=== PATIENT | male | born 1955 | race Caucasian/White ===

== ENCOUNTER 2016-12-21 15:18 | Emergency (ER) | payer BC, OTHER ==
[2016-12-21 15:28] VITALS: BP 128/77
--- NOTE | 2016-12-21 16:25 | RAD ---
INDICATION: Right shoulder pain COMPARISON: None TECHNIQUE: Routine frontal and Y views were obtained. FINDINGS: There is moderate AC joint osteoarthritis. There is minor glenohumeral osteophytes are change. There are mild irregularities about the greater tuberosity. There are subtle findings of calcific tendinitis. IMPRESSION: NO ACUTE BONY FINDINGS. OSTEOARTHRITIS. EARLY CALCIFIC TENDINITIS.
--- NOTE | 2016-12-21 17:49 | UC ---
Lorri Bravo Rebecca, scribed for Julisa Agrawal DO on 12/21/16 at 1558 . Upper Extremity HPI - HPI Summary HPI Summary: Pt is a 61 y/o M who presents to [facility] c/o R shoulder pain. Pain began at about 1100 today after sustaining trauma. Pt was moving hay out of the bed of the truck when he went to step down, missing the step and falling out of the truck onto the latanya of hay. Pt remembers the entire fall. Negative LOC. Pain is discrete to the R shoulder, without radiation, and is only present when moving the arm, not at rest. When present, pain is severe, ranked 8/10. Sx aggravated by lifting, alleviated by nothing, unchanged by a hot bath. Additionally notes nausea immediately after the fall d/t pain (a common pain response for pt)which has resolved. Denies memory loss, fever, chills, diaphoresis, CP, SOB, abdominal pain, V. PMHx R rotator cuff injury about 20 eyars ago and current sx are similar to that episode. - History of Current Complaint Chief Complaint: UCUpperExtremity Stated Complaint: SHOULDER INJURY Time Seen by Provider: 12/21/16 15:55 Hx Obtained From: Patient Onset/Duration: Lasting Hours, Still Present Severity Currently: Severe Pain Intensity: 8 - When moving the arm Pain Scale Used: 0-10 Numeric Location Of Pain: Is Discrete @ - R shoulder Aggravating Factor(s): Lifting Alleviating Factor(s): Nothing Associated Signs And Symptoms: Positive: Negative Related History: Similar Episode/Dx As - R rotator cuff injury 20 years ago - Allergies/Home Medications Allergies/Adverse Reactions: Allergies Allergy/AdvReac Type Severity Reaction Status Date / Time No Known Allergies Allergy Verified 12/21/16 15:28 Home Medications: Home Medications Insulin ? Name 1 dose IM BID 12/21/16 [History Confirmed 12/21/16] PMH/Surg Hx/FS Hx/Imm Hx - Additional Past Medical History Additional PMH: POSITIVE: R rotator cuff problems Endocrine History: Diabetes Other Respiratory History: neg copd GI/ History: Other Other GI/ History: Hernia - surgically repaired - Surgical History Surgical History: Yes Surgery Procedure, Year, and Place: Hernia - Family History Known Family History: Positive: Diabetes Negative: Cardiac Disease, Hypertension - Social History Lives: With Family Alcohol Use: None Substance Use Type: None Smoking Status (MU): Light Every Day Tobacco Smoker Cessation Counseling: Patient Advised to Stop Review of Systems Constitutional: Negative Skin: Negative Eyes: Negative ENT: Negative Respiratory: Negative Cardiovascular: Negative Gastrointestinal: Nausea - resolved Genitourinary: Negative Motor: Negative Neurovascular: Negative Musculoskeletal: Other: - R shoulder pain Neurological: Negative Psychological: Negative All Other Systems Reviewed And Are Negative: Yes - Comments Additional Review of Systems Comments: NEGATIVE: LOC, memory loss, fever, chills, diaphoresis, CP, SOB, abdominal pain and V Physical Exam Triage Information Reviewed: Yes Appearance: Well-Appearing, No Pain Distress, Obese Vital Signs: Initial Vital Signs Temp 96.4 F 12/21/16 15:24 Pulse 79 12/21/16 15:24 Resp 18 12/21/16 15:24 BP 128/77 12/21/16 15:24 Pulse Ox 98 12/21/16 15:24 Vital Signs Reviewed: Yes Eyes: Positive: Conjunctiva Clear. Negative: Discharge ENT: Positive: Normal ENT inspection. Negative: Muffled/hoarse voice Neck exam: Normal Neck: Positive: Supple Respiratory: Positive: Lungs clear, Normal breath sounds, No respiratory distress, No accessory muscle use Cardiovascular: Positive: RRR, No Murmur Musculoskeletal: Positive: Other: - Palpation reveals mild tenderness over the AC joint as well as the supraspinatus, subscapularis tendons. ROM is limited in flexion and abduction to about 6% in both. Passive ROM is intact with flexion and about 90% of abduction, however further testing of the ROM of abduction was deferred as it was causing the pt significant pain. Abrasion over the right elbow and R knee. Distal neurovascular inspection is within normal limits. Neurological: Positive: Alert, Muscle Tone Normal Psychological Exam: Normal Psychological: Positive: Age Appropriate Behavior Skin Exam: Normal Skin: Positive: Other - Warm, Dry, Normal color. Minimal abraisions on rt elbow and knee. Diagnostics - Radiology Shoulder XR Xray Interpretation: No Acute Changes - NO ACUTE BONY FINDINGS. OSTEOARTHRITIS. EARLY CALCIFIC TENDINITIS. Radiology Interpretation Completed By: Radiologist Upper Extremity Course/Dx - Course Course Of Treatment: Pt is a 61 y/o M who presents to [facility] c/o R shoulder pain. Pain began at about 1100 today after falling out of the bed of the truck when he went to step down, missing the step and falling out, onto latanya of hay. Negative LOC. Pain is discrete to the R shoulder, without radiation, and is only present when moving the arm, not at rest. When present, pain is severe, ranked 8/10. Sx aggravated by lifting, unchanged by a hot bath. Additionally notes nausea immediately after the fall which has resolved. Denies memory loss, fever, chills, diaphoresis, CP, SOB, abdominal pain, V. PMHx R rotator cuff problems about 20 years ago. Shoulder XR reveals no acute findings. Pt will be D /C to home with Dx of shoulder sprain with Rx for Naprosyn with a follow up with his PCP. He understands and agrees. Your blood pressure was elevated at this visit. That does not mean you have hypertension, it is probably due to your current condition. Please follow up with your primary care provider. - Differential Dx/Diagnosis Differential Diagnosis/HQI/PQRI: Fracture (Closed), Strain, Sprain Provider Diagnoses: [place]ler sprain. Rotator cuff injury. Elevated blood pressure without diagnosis of hypertension. Discharge - Discharge Plan Condition: Stable Disposition: HOME Prescriptions: Naproxen TAB* [Naprosyn 250 mg TAB*] 500 mg PO BID #14 tab Patient Education Materials: Rotator Cuff Injury (ED), Shoulder Sprain (ED) Referrals: Harman Pal MD [Primary Care Provider] - If Needed Ada Cooper MD [Medical Doctor] - (FOLLOW UP WITHIN 1 WEEK.) Additional Instructions: Your blood pressure was elevated at this visit. That does not mean you have hypertension, it is probably due to your current condition. Please follow up with your primary care provider The documentation as recorded by the Lorri lara Rebecca accurately reflects the service I personally performed and the decisions made by me, Julisa Agrawal DO.
== END 2016-12-21 17:07 | disposition home or self-care (01) ==
LOC: UCEAST 15:18
DX: S43.401A Unspecified sprain of right shoulder joint, initial encounter (principal); W17.89XA Other fall from one level to another, initial encounter; Y92.9 Unspecified place or not applicable
CPT/HCPCS: 99202; G0463

== ENCOUNTER 2019-04-08 10:22 | Inpatient (IN) | payer BC ==
--- NOTE | 2019-04-08 10:30 | ED ---
HPI Cardiac - HPI Summary HPI Summary: Patient is a 63 y/o M presenting to the ED via EMS for a chief complaint of a cardiac problem. Patient states he was having a cardiac stress test on 04/08/19 and his stress test showed ischemic changes so he was sent to [facility]. He denies chest pain, chest pressure, or shortness of breath during the cardiac stress test. Patient does admit occasional shortness of breath, none at the present time, bilateral foot pain, and right foot and ankle edema. He denies abdominal pain or calf pain. Patient was placed on diuretics for his right foot and ankle edema. The bilateral foot pain is attributed to his history of DM. Any aggravating or alleviating factors is denied. PMHx is significant for DM, but a history of COPD or blood clots is denied, ruled out by sonogram. FMHx is significant for cardiac disease in his parents and NM in his brother. Patient admits tobacco use, but denies alcohol use. - History of Current Complaint Stated Complaint: CARDIAC ISSUES PER EMS Hx Obtained From: Patient Onset/Duration: Atraumatic, Still Present Timing: Constant Initial Severity: Moderate Current Severity: Moderate Pain Scale Used: 0-10 Numeric Chest Pain Radiates: No Aggravating Factor(s): Nothing Alleviating Factor(s): Nothing Associated Signs and Symptoms: Positive: Shortness of Breath - None at the present time, Edema - Right foot and ankle, Other: - Positive bilateral foot pain. Negative: Chest Pain, Abdominal Pain, Calf Pain/Swelling Related History: Obesity - Allergy/Home Medications Allergies/Adverse Reactions: Allergies Allergy/AdvReac Type Severity Reaction Status Date / Time No Known Allergies Allergy Verified 04/08/19 10:36 Home Medications: Home Medications Atorvastatin* [Lipitor*] 20 mg PO DAILY 04/08/19 [History Confirmed 04/08/19] Clotrimazole ELVI* [Mycelex ELVI*] 10 mg PO .5X/DAY 04/08/19 [History Confirmed 04/08/19] Dapagliflozin Propanediol [Farxiga] 5 mg PO DAILY 04/08/19 [History Confirmed ] Fluticasone NASAL SPRAY 50MCG* [Flonase NASAL SPRAY 50MCG*] 2 spray BOTH NARES DAILY 04/08/19 [History Confirmed 04/08/19] Insulin Regular 500 Unit/ml [Humulin R U-500 (Concentr] 100 unit SUBCUT TID [History Confirmed 04/08/19] Lansoprazole CAP (NF) [Prevacid CAP (NF)] 30 mg PO DAILY 04/08/19 [History Confirmed 04/08/19] Torsemide TAB* [Demadex*] 40 mg PO DAILY 04/08/19 [History Confirmed 04/08/19] PMH/Surg Hx/FS Hx/Imm Hx Previously Healthy: Yes Endocrine/Hematology History: Reports: Hx Diabetes Cardiovascular History: Reports: Hx Hypertension Denies: Hx Pacemaker/ICD History: Denies: Hx Renal Disease Sensory History: Denies: Hx Legally Blind, Hx Deafness, Hx Hearing Aid Opthamlomology History: Denies: Hx Legally Blind EENT History: Denies: Hx Deafness, Hx Hearing Aid Psychiatric History: Denies: Hx Panic Disorder - Surgical History Surgical History: Yes Surgery Procedure, Year, and Place: Hernia Infectious Disease History: No - Family History Known Family History: Positive: Cardiac Disease, Diabetes, Other - NM Negative: Hypertension - Social History Occupation: Retired Lives: With Family Alcohol Use: None Hx Substance Use: No Substance Use Type: Reports: None Hx Tobacco Use: Yes Smoking Status (MU): Light Every Day Tobacco Smoker Review of Systems Negative: Chest Pain, Other - Negative chest pressure Positive: Shortness Of Breath - Not at the present time Negative: Abdominal Pain Positive: Myalgia - Positive bilateral foot pain; negative calf pain, Edema - Right foot and ankle All Other Systems Reviewed And Are Negative: Yes Physical Exam - Summary Physical Exam Summary: Constitutional: Well-developed, Overweight, Alert. No acute distress. Skin: Warm, Dry HENT: Normocephalic; Atraumatic Eyes: Conjunctiva normal Neck: Musculoskeletal ROM normal neck. (-) JVD, (-) Stridor, (-) Tracheal deviation Cardio: Rhythm regular, rate normal, Heart sounds normal; Intact distal pulses; The pedal pulses are 2+ and symmetric. Radial pulses are 2+ and symmetric. (-) Murmur Pulmonary/Chest wall: Effort normal. (-) Respiratory distress, (-) Wheezes, (-) Rales Abd: Soft, (-) tenderness, (-) Distension, (-) Guarding, (-) Rebound Musculoskeletal: (-) Edema Lymph: (-) Cervical adenopathy Neuro: Alert, Oriented x3 Psych: Mood and affect Normal Triage Information Reviewed: Yes Vital Signs Reviewed: Yes Procedures - Sedation Patient Received Moderate/Deep Sedation with Procedure: No Diagnostics - Laboratory Result Diagrams: 04/08/19 10:49 04/08/19 10:50 Lab Statement: Any lab studies that have been ordered have been reviewed, and results considered in the medical decision making process. - Radiology Chest X-ray Radiology Interpretation Completed By: Radiologist Summary of Radiographic Findings: Chest X-ray IMPRESSION: NO ACTIVE CARDIOPULMONARY DISEASE. Reviewed by Dr. Moscoso. - EKG 10:42 Cardiac Rate: NL - 84 BPM EKG Rhythm: Sinus Rhythm ST Segment: Normal Ectopy: None Summary of EKG Findings: EKG at 10:42 shows normal sinus rhythm with 84 bpm, inferolateral ischemic changes noted. Dr. Moscoso has reviewed and interpreted this EKG. Disposition - Course Course Of Treatment: Patient is a 63 y/o M presenting to the ED via EMS for a chief complaint of a cardiac problem. Patient states he was having a cardiac stress test on 04/08/19 and his stress test showed ischemic changes so he was sent to [facility]. He denies chest pain, chest pressure, or shortness of breath during the cardiac stress test. Patient does admit occasional shortness of breath, none at the present time, bilateral foot pain, and right foot and ankle edema. He denies abdominal pain or calf pain. Patient was placed on diuretics for his right foot and ankle edema. The bilateral foot pain is attributed to his history of DM. Any aggravating or alleviating factors is denied. PMHx is significant for DM, but a history of COPD or blood clots is denied, ruled out by sonogram. FMHx is significant for cardiac disease in his parents and NM in his brother. Patient admits tobacco use, but denies alcohol use. On exam, patient is overweight and in no acute distress. In the ED course, patient was given IV fluids. EKG at 10:42 shows normal sinus rhythm with 84 bpm, inferolateral ischemic changes noted. Chest X-ray IMPRESSION: NO ACTIVE CARDIOPULMONARY DISEASE. At 10:57, I discussed with Dr. Wero Clark who will evaluate the patient in the ED and likely take the patient to the yard laborer. At 11:33, Dr. Clark recommends admission. At 12:22, Dr. Clark assessed the patient and states that the patient will be taken to the yard laborer. At 12:30 , Dr. Heide Lazo discussed with the cilnical scientist for ICU admission following yard laborer. Patient will be admitted to [facility] with a diagnosis of ischemic changes during a cardiac stress test. - Diagnoses Provider Diagnoses: Cardiac ischemia, Abnormal cardiovascular stress test - Physician Notifications Discussed Care Of Patient With: Wero Clark - At 10:57, I discussed with Dr. Wero Clark who will evaluate the patient in the ED and likely take the patient to the yard laborer. At 11:33, Dr. Clark recommends admission. At 12:22, Dr. Clark assessed the patient and states that the patient will be taken to the yard laborer. At 12:30, Dr. Heide Lazo discussed with the cilnical scientist for ICU admission following yard laborer. Time Discussed With Above Provider: 10:57 Instructed by Provider To: MD Will See In ED Discharge ED - Sign-Out/Discharge Documenting (check all that apply): Patient Departure - Admit - Discharge Plan Condition: Stable Disposition: ADMITTED TO [facility] - Billing Disposition and Condition Condition: STABLE Disposition: Admitted to [facility] - Attestation Statements Document Initiated by Jsoefina: Yes Documenting Scribe: Lolis Pelaez Provider For Whom Josefina is Documenting (Include Credential): Warren Moscoso DO Scribe Attestation: Lolis Bravo scribed for Warren Moscoso DO on 04/08/19 at 1417. Scribe Documentation Reviewed: Yes Provider Attestation: The documentation as recorded by the lisetteibLolis spence accurately reflects the service I personally performed and the decisions made by , Warren Moscoso DO Status of Scribjordy Document: Viewed
[2019-04-08] MEDS ORDERED: NS 0.9% 1000 ML** 1,000 ML IV ONE (10:36)
--- OUTSIDE RECORDS SUMMARY | 2019-04-08 10:55 | XMS REPORT | Continuity of Care Document ---
:1955 External Reference #:[id number] Author Name Denzel Mayfield MD (transmitted by agent of provider Joanna Curtis) Address [address] [place] [address] Care Team Providers Name Role Phone Harman Pal MD - Internal Care Team Information Damper Fitter Medicine Problems Description No Information Available Social History Type Date Description Comments Sex Unknown ETOH Use Denies alcohol use Tobacco Use Start: Unknown Patient is a former quit Feb 2017, End: Unknown smoker Recreational Drug Use Denies Drug Use Tobacco Use Start: Unknown Patient is a current recent recurrence of smoker, smokes some smoking days Smoking Status Reviewed: 03/03/19 Patient is a current recent recurrence of smoker, smokes some smoking days Exercise Type/Frequency Does not exercise Allergies, Adverse Reactions, Alerts Active Allergies Reaction Severity Comments Date Jardiance tongue swelling 12/02/2018 Inactive Allergies NKDA 04/21/2018 Medications Active Medications SIG Qnty Indications Ordering Date Provider Steglatro take 1 tablet 30tabs Denzel Mayfield MD 03/03/2019 15mg Tablets once daily in the morning Freestyle Ashley 14 place one sensor 1units E11.65 Denzel Mayfield MD 2018 Day/Sensor/Flash every 14 days Monitoring System Misc Humulin R U-500 100 units in the 18ml E11.65 Denzel Mayfield MD 07/02/2018 Kwikpen morning, 100 at 500Unit/ML midday units and Solution Pen-Inject 100 units in the evening or as directed, mdd 300 units/day Freestyle Ashley 14 use at least 4 1units E11.65 Denzel Mayfield MD 05/07/2018 Day/[place]/Flash times daily with Monitoring System sensor Device Freestyle Ashley [address] one sensor 2units E11.65 Denzel Mayfield MD 2018 Day/Sensor/Flash every 14 days Monitoring System Mis Torsemide 2 by mouth every Unknown 20mg Tablets day Atorvastatin Calcium 1 by mouth every Unknown 20mg day Tablets Nystatin 2ml in each side Unknown [id number]/ML of mouth, swish, Suspension wipe tongue with wash cloth then swallow, four times a day for 10 days Losartan Potassium 1 by mouth every Unknown 100mg day Tablets Levocetirizine 1 every day as Unknown Dihydrochloride needed 5mg Tablets Lansoprazole 1 by mouth every Unknown 30mg day Capsules DR Lancets for use with your Unknown 33G [facility] glucometer Fluticasone Propionate 2 puffs each nare Unknown every in the 50mcg/Act Suspension morning Fenofibrate 1 by mouth every Unknown 145mg Tablets day Pen [place] 516" use tid with 100units Denzel Mayfield MD 31G X 8 insulin mm [facility] injections History Medications Steglatro 1 by mouth every 30tabs Denzel Mayfield MD 02/04/2019 - 5mg day in the 03/03/2019 Tablets morning Jardiance 10mg by mouth 30tabs E11.65 Denzel Mayfield MD 10/01/2018 - 10mg daily 12/01/2018 Tablets Immunizations Description No Information Available Vital Signs Date Vital Result Comment 03/03/2019 8:50am Height 71 inches 5'11" Weight 282.00 lb w/ shoes Heart Rate 71 /min BP Systolic Sitting 167 mmHg BP Diastolic Sitting 83 mmHg BMI (Body Mass Index) 39.3 kg/m2 12/02/2018 1:21pm Height 71 inches 5'11" Weight 274.00 lb w/ shoes Heart Rate 84 /min BP Systolic Sitting 182 mmHg BP Diastolic Sitting 92 mmHg BMI (Body Mass Index) 38.2 kg/m2 Results Description No Information Available Procedures Date Code Description Status 06/25/2018 [id number] Diabetic Retinal Eye Exam Completed Medical Devices Description No Information Available Encounters Type Date Location Provider Dx Diagnosis Office Visit 03/03/2019 [facility] Denzel Mayfield MD E11.65 Type 2 diabetes 9:00a [facility] mellitus with hyperglycemia Z79.4 intermediate teacher (current) use of insulin Office Visit 12/02/2018 [facility] and Deznel Mayfield E11.65 Type 2 diabetes 1:40p [facility] [place] mellitus with [facility] hyperglycemia Z79.4 USP (current) use of insulin Office Visit 10/01/2018 1:40p [facility] and Denzel Mayfield Z79.4 USP [facility] (current) use of insulin E11.65 Type 2 diabetes mellitus with hyperglycemia Assessments Date Code Description Provider 03/03/2019 E11.65 Type 2 diabetes mellitus with hyperglycemia Denzel Mayfield MD 03/03/2019 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.4 intermediate teacher (current) use of insulin Denzel Mayfield MD 12/02/2018 E11.65 Type 2 diabetes mellitus with hyperglycemia Denzel Mayfield MD 12/02/2018 Z79.4 USP (current) use of insulin Denzel Mayfield MD 10/01/2018 Z79.4 USP (current) use of insulin Denzel Mayfield MD 10/01/2018 E11.65 Type 2 diabetes mellitus with hyperglycemia Denzel Mayfield MD Plan of Treatment Future Appointment(s):08/03/2019 9:20 am - Denzel Mayfield MD at [facility] and [facility]03/03/2019 - Denzel Mayfield MDE11.65 Type 2 diabetes mellitus with hyperglycemiaInstructions:1. Increase U500 to 100 units for large meals, 75 units for other meals. 2. Increase Steglatro to 15mg daily. 3. Eliminate all liquid beverages other than coffee or water.Z79.4 intermediate teacher ( current) use of insulin Functional Status Description No Information Available Mental Status Description No Information Available Referrals Description No Information Available
--- OUTSIDE RECORDS SUMMARY | 2019-04-08 10:55 | XMS REPORT | Summary of Care ---
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 Encounter Details Date Type Department Care Team Description 02/17/2019 Office Visit [facility] [place] Uncontrolled type 2 diabetes mellitus with microalbuminuria, with long-term current use of insulin (HCC) (Primary Dx); Brianne Conroy MD Family history of coronary artery disease in brother; [address] [facility] Essential hypertension; [place] [address] BMI 38.0-38.9,adult; [phone] Diabetic peripheral neuropathy (HCC); [phone] Atypical chest pain; (Fax) Primary osteoarthritis of right hand Allergies Active Allergy Reactions Severity Noted Date Comments No Known Allergies Other 10/13/2007 documented as of this encounter (statuses as of 02/17/2019) Medications Medication Sig Dispensed Refills Start Date End Date Status Blood Glucose by Does not 1 Kit 0 05/21/2013 Active Monitoring Suppl apply route. (BLOOD GLUCOSE Brand:Per METER) Does not insurance apply Kit Dx:DM 250.02 non-Insulin dependent Test Blood Glucose 2 time(s) A DAY Blood Glucose Inject 100 Strip 4 06/28/2014 Active Monitoring Suppl beneath the (BLOOD GLUCOSE skin TWICE TEST STRIPS STRP) DAILY. Brand:Per Insurance,250. 02, non insulin dependent,test s bid Glucose Blood In 1 Strip by In 1 Bottle 5 05/30/2017 Active Vitro Strip Vitro route TWICE DAILY. E11.65 once daily Lancets Does not 1 Appl by Does 200 Each 5 06/27/2017 Active apply Misc not apply route TWICE DAILY. accucheck sofclix lancets type ii ADVOCATE INSULIN 1 Each by Does 100 Each 10 10/17/2017 Active PEN NEEDLES 31G X not apply 8 MM Does not route THREE apply Misc TIMES DAILY. Insulin R, Inject 70 20 mL 5 08/07/2018 Active SHORT-ACTING,HIGH Units beneath CONCENTRATION, INJ the skin TWICE (HUMULIN R) 500 DAILY. UNIT/ML Subcutaneous Solution atorvastatin Take 1 Tab by 90 Tab 3 08/24/2018 Active (LIPITOR) 20 MG mouth DAILY. Oral Tab fluticasone Weston 2 Sprays 1 Bottle 5 08/27/2018 Active (FLONASE) 50 in nose DAILY. 0 MCG/ACT Nasal SuspensionIndicati ons: Allergic rhinitis, unspecified seasonality, unspecified trigger torsemide Take 1 Tab by 90 Tab 5 10/01/2018 Active (DEMADEX) 20 MG mouth DAILY. Oral Tab clotrimazole Take 10 mg by 70 Tab 4 11/12/2018 Active janell (MYCELEX) mouth FIVE 10 MG Mouth/Throat TIMES DAILY. Janell Insulin Pen Needle Inject 1 Each 100 Each 3 11/21/2018 Active 32G X 8 MM Does beneath the not apply Misc skin DAILY. Lansoprazole 30 MG TAKE 1 CAPSULE 90 Cap 3 12/28/2018 Active Oral CAPSULE BY MOUTH ONCE DELAYED DAILY RELEASEIndications : Reflux esophagitis torsemide Take 2 Tabs by 60 Tab 5 01/20/2019 Active (DEMADEX) 20 MG mouth DAILY. Oral Tab Dapagliflozin Take 5 mg by 30 Tab 5 02/17/2019 Active Propanediol mouth DAILY. (FARXIGA) 5 MG Oral Tab Losartan Potassium Take 1 Tab by 90 Tab 3 04/15/2018 Discontinued 100 MG Oral Tab mouth DAILY. 9 (Provider Discontinued) documented as of this encounter (statuses as of 02/17/2019) Active Problems Problem Noted Date Family history of coronary artery disease in brother 02/17/2019 Overview: Brother [place] age 55 Diabetic peripheral neuropathy 09/10/2018 Diabetic retinopathy of right eye associated with type 2 diabetes mellitus BMI 38.0-38.9,adult 08/07/2018 Rhinitis medicamentosa 09/18/2016 Reflux esophagitis 10/13/2007 Essential hypertension 09/30/2007 Tobacco use 09/30/2007 Overview: QUIT IN 2002 Restarted 2003 3 cigarettes per day 07/03 Quit Mar 2017 40 packyr history Hypertriglyceridemia 09/30/2007 Overview: TGs 1440 01/30 Obstructive Sleep Apnea 09/30/2007 Uncontrolled type 2 diabetes mellitus with microalbuminuria, with 09/30/2007 long-term current use of insulin Overview: A1C 11.4% 01/30 CHRONIC RECURRENT SINUSITIS 09/30/2007 Overview: ENT referral Dr Yudith SYLVESTER Allergic rhinitis 09/30/2007 Deviated nasal septum 09/30/2007 NONCARDIAC CHEST PAIN 09/30/2007 documented as of this encounter (statuses as of 02/17/2019) Resolved Problems Problem Noted Date Resolved Date Sprain of sacrum 11/20/2011 05/30/2017 Sprain of lumbar region 01/09/2011 07/17/2011 Lumbar strain 12/19/2010 07/17/2011 Nausea with vomiting 05/10/2010 07/17/2011 Shoulder pain 12/06/2009 07/17/2011 Closed fracture of metacarpal bone 01/20/2008 07/17/2011 Overview: Right fourth metacarpal fracture [facility] 12/29. Obesity 09/30/2007 08/07/2018 Overview: BMI 38 11/30. documented as of this encounter (statuses as of 02/17/2019) Immunizations Name Administration Dates Next Due Influenza (IM) Preservative Free 11/29/2014 Influenza Vaccine Whole 12/30/2005 PNEUMOCOCCAL POLYSACCHARIDE VACCINE 04/15/2018 documented as of this encounter Social History Tobacco Use Types Packs/Day Years Used Date Current Every Day Smoker Cigarettes 0.25 30 Smokeless Tobacco: Never Used Alcohol Use Drinks/Week oz/Week Comments No Sex Assigned at Date Recorded Not on file Job Start Date Occupation Industry Not on file Not on file Not on file Travel History Travel Start Travel End No recent travel history available. documented as of this encounter Last Filed Vital Signs Vital Sign Reading Time Taken Comments Blood Pressure 120/70 02/17/2019 8:51 AM EST Pulse 74 02/17/2019 8:51 AM EST Temperature - - Respiratory Rate - - Oxygen Saturation - - Inhaled Oxygen Concentration - - Weight 126.1 kg (278 lb) 02/17/2019 8:51 AM EST Height 180.3 cm (5' 11") 02/17/2019 8:51 AM EST Body Mass Index 38.77 02/17/2019 8:51 AM EST documented in this encounter Patient Instructions Patient InstructionsHarman Pal MD - 02/17/2019 9:00 AM EST Please check your blood pressure at home, mall, pharmacy, or grocery store three times per week. Write these numbers down and bring them into your next doctor visit. The goal blood pressure for you is less than : 140/90 Continue the antibiotic Diabetes mellitus blood and urine test 3 months Heart chemical stress test we will call you about this aspercreme three times daily To left hand and knuckle Lab Results Component Value Date GLYCO 9.4 (H) 02/09/2019 documented in this encounter Progress Notes Harman Pal MD - 02/17/2019 9:00 AM EST PATIENT: Fady Blancas : 1955 DATE OF SERVICE: 02/17/2019 CHIEF COMPLAINT: Chief Complaint Patient presents with Diabetes Last A1C was 9.4 on 02/09/2019. Subjective HISTORY OF PRESENT ILLNESS: Fady Blancas is a 63-y.o. male. HPI Follow up diabetes mellitus and recent of 55 year old brother of massive myocardial infarctionboth parents had heart disease but in 70s He denies angina he gets fleeting atypical chest aches with stress last less than 2-3 minute and notsubsternal no new dyspnea on exertion or fatigue Lab Results Component Value Date GLYCO 9.4 (H) 02/09/[address] mayfield for this and has follow up He is now on new SGLT2 agent low dose 5 mg farxiga no medication side effects He has not lost weight Wt Readings from Last 3 Encounters: 02/17/19 278 lb (126.1 kg) 01/20/19 278 lb (126.1 kg) 11/12/18 268 lb (121.6 kg) home blood pressure is 100-120 off losartan he has stopped this medication Lab Results Component Value Date CHOL 129 02/09/2019 TRIG 515 (H) 02/09/2019 HDL 21 (L) 02/09/2019 LDL 02/09/2019 Comment: Calculation invalid due to Triglycerides > 400. LDLHDLRATIO 02/09/2019 Comment: Calculation invalid due to Triglycerides > 400. CHOLHDLRATIO 6.1 02/09/2019 Patient Active Problem List Diagnosis Essential hypertension Tobacco use Hypertriglyceridemia Obstructive Sleep Apnea Uncontrolled type 2 diabetes mellitus with microalbuminuria, with long- term current use of insulin ([facility]) CHRONIC RECURRENT SINUSITIS Allergic rhinitis Deviated nasal septum NONCARDIAC CHEST PAIN Reflux esophagitis Rhinitis medicamentosa Diabetic retinopathy of right eye associated with type 2 diabetes mellitus ([facility]) BMI 38.0-38.9,adult Diabetic peripheral neuropathy ([facility]) Family history of coronary artery disease in brother Family History Problem Relation Age of Onset Diabetes Father NON INSULIN DEPENDENT Heart Father Diabetes Mother NONINSULIN DEPENDENT Heart Mother Current Outpatient Medications Medication Sig ADVOCATE INSULIN PEN NEEDLES 31G X 8 MM Does not apply Misc 1 Each by Does not apply route THREE TIMES DAILY. atorvastatin (LIPITOR) 20 MG Oral Tab Take 1 Tab by mouth DAILY. Blood Glucose Monitoring Suppl (BLOOD GLUCOSE METER) Does not apply Kit by Does not apply route. Brand:Per insurance Dx:DM 250.02 non-Insulin dependent Test Blood Glucose 2 time(s) A DAY Blood Glucose Monitoring Suppl (BLOOD GLUCOSE TEST STRIPS STRP) Inject beneath the skin TWICE DAILY. Brand:Per Insurance,250.02, non insulin dependent, tests bid clotrimazole janell (MYCELEX) 10 MG Mouth/Throat Janell Take 10 mg by mouth FIVE TIMES DAILY. Dapagliflozin Propanediol (FARXIGA) 5 MG Oral Tab Take 5 mg by mouth DAILY. fluticasone (FLONASE) 50 MCG/ACT Nasal Suspension Weston 2 Sprays in nose DAILY. Glucose Blood In Vitro Strip 1 Strip by In Vitro route TWICE DAILY. E11.65 once daily Insulin Pen Needle 32G X 8 MM Does not apply Misc Inject 1 Each beneath the skin DAILY. Insulin R, SHORT-ACTING,HIGH CONCENTRATION, INJ (HUMULIN R) 500 UNIT/ML Subcutaneous SolutionInject 70 Units beneath the skin TWICE DAILY. Lancets Does not apply Misc 1 Appl by Does not apply route TWICE DAILY. accucheck sofclix lancets type ii Lansoprazole 30 MG Oral CAPSULE DELAYED RELEASE TAKE 1 CAPSULE BY MOUTH ONCE DAILY torsemide (DEMADEX) 20 MG Oral Tab Take 1 Tab by mouth DAILY. torsemide (DEMADEX) 20 MG Oral Tab Take 2 Tabs by mouth DAILY. No current facility-administered medications for this visit. Allergies Allergen Reactions Nka [No Known Allergies] Other Social History Socioeconomic History Marital status: Spouse name: Not on file Number of children: Not on file Years of education: Not on file Highest education level: Not on file Occupational History Not on file Social Needs Financial resource strain: Not on file Food insecurity: Worry: Not on file Inability: Not on file Transportation needs: Medical: Not on file Non-medical: Not on file Tobacco Use Smoking status: Current Every Day Smoker Packs/day: 0.25 Years: 30.00 Pack years: 7.50 Types: Cigarettes Smokeless tobacco: Never Used Substance and Sexual Activity Alcohol use: No Drug use: No Sexual activity: Not on file Lifestyle Physical activity: Days per week: Not on file Minutes per session: Not on file Stress: Not on file Relationships Social connections: Talks on phone: Not on file Gets together: Not on file Attends quaker service: Not on file Active member of club or organization: Not on file Attends meetings of clubs or organizations: Not on file Relationship status: Not on file Intimate partner violence: Fear of current or ex partner: Not on file Emotionally abused: Not on file Physically abused: Not on file Forced sexual activity: Not on file Other Topics Concern Back Care Not Asked Bike Helmet Not Asked Blood Transfusions Not Asked Caffeine Concern Not Asked Exercise No Comment: 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 Hobby Hazards Not Asked International Travel Not Asked Service Not Asked Occupational Exposure Not Asked Seat Belt Not Asked Self-Exams Not Asked Sleep Concern No Special Diet Yes Comment: low carb and low fat Stress Concern No Weight Concern Yes Comment: goal wt 280 lbs Social History Narrative 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 Physical Exam second degree burn left 3rd toe distal part of digit no eschar no cellulitis or tenderness no exudate Left foot diabetic exam: Visual exam. Foot appears normal without wounds or signs of infection: yes Sensory exam. Patient can feel the monofilament on the foot: No at tips of all toes Pulse exam. A pulse is palpable at either the foot or ankle: yes Right foot diabetic exam: Visual exam. Foot appears normal without wounds or signs of infection: yes Sensory exam. Patient can feel the monofilament on the foot: no at tips of all toes Pulse exam. A pulse is palpable at either the foot or ankle: yes ASSESSMENT / IMPRESSION: ICD-9-CM ICD-10-CM 1. Uncontrolled type 2 diabetes mellitus with microalbuminuria, with long-term current use of insulin (HCC) continue current medications follow up Dr Mayfield and hemoglobin A1C 3 month 250.42 E11.29 791.0 E11.65 V58.67 R80.9 Z79.4 2. Family history of coronary artery disease in brother V17.3 Z82.49 3. Essential hypertension at goal stay off angiotensin receptor brittney for now and monitor blood pressure 401.9 I10 4. BMI 38.0-38.9,adult V85.38 Z68.38 5. Diabetic peripheral neuropathy (HCC) closely inspect feet daily 250.60 E11.42 357.2 6. Atypical chest pain multiple cardiovascular risk factors he states he cannot walk on treadmill due to knees and hips dobutamine stress echocardiogram will be scheduled 786.59 R07.89 DOBUTAMINE STRESS ECHO 7. Primary osteoarthritis of right hand aspercreme three times daily Topical 715.14 M19.041 Patient Instructions Please check your blood pressure at home, mall, pharmacy, or grocery store three times per week. Write these numbers down and bring them into your next doctor visit. The goal blood pressure for you is less than : 140/90 Continue the antibiotic Diabetes mellitus blood and urine test 3 months Heart chemical stress test we will call you about this aspercreme three times daily To left hand and knuckle Lab Results Component Value Date GLYCO 9.4 (H) 02/09/2019 Harman Pal MD 02/17/2019 09:17 documented in this encounter Plan of Treatment Date Type Specialty Care Team Description 05/21/2019 Lab Internal Medicine 05/27/2019 Office Visit Internal Medicine Harman Pal MD [address] [place] [address] [phone] Name Type Priority Associated Diagnoses Order Schedule DOBUTAMINE STRESS ECHO CV Lab Routine Atypical chest pain Expected: 2018, Expires: 03/23/2020 Health Maintenance Due Date Last Done Comments ZOSTER IMMUNIZATION SERIES 12/21/2005 (1 of 2) FOOT EXAM 05/30/2018 05/30/2017, 05/30/2017, 05/30/2017, Additional history exists HEMOGLOBIN A1C 05/12/2019 02/09/2019, 11/03/2018, 07/31/2018, Additional history exists Diabetic Eye Exam 05/29/2019 05/28/2018, 05/28/2018 URINE MICROALBUMIN 08/01/2019 07/31/2018, 08/23/2016, 06/25/2014, Additional history exists DEPRESSION SCREENING 08/08/2019 08/07/2018 Colonoscopy 12/14/2019 12/13/2009, 12/13/2009, 12/13/2009 LIPID DISORDER SCREENING 02/10/2020 02/09/2019, 08/24/2018, 07/31/2018, Additional history exists PNEUMOCOCCAL 0-64 YRS Completed 04/15/2018 HPV IMMUNIZATION SERIES Aged Out No longer eligible based on patient's age to complete this topic MENINGOCOCCAL VACCINE IMM Aged Out No longer eligible based on patient's age to complete this topic documented as of this encounter Goals Goal Patient Goal Associated Recent Patient-Stated? Author Type Problems Progress Blood Pressure Blood Essential 120/70 No [place], < 140/90 Pressure hypertension (02/17/2019 Harman Conroy, 8:51 AM EST) Note: Hypertension Care Plan Based on the patient's clinical history and according to JNC 8 guidelines target blood pressure goal is less than 140/90. Based on the patient's last blood pressure of BP: 132/76 mmHg the patient is at at goal. As your provider, it is important that I advise you regarding: your current medications and help you with any challenges you may face taking your medications as directed (ex. instructions, cost, side effects, and interactions). Important lifestyle changes: exercise, weight reduction, diet and dietary sodium reduction your clinical goals and how you can achieve success: weight reduction, exercise plan and diet improvements medication management: N/A diet only patient education/self-management tools provided: Current self-management tools adequate To successfully manage my Hypertension I will: monitor my blood pressure daily, understanding that my goal is less than 140/ 90 per my healthcare provider's recommendation. I will schedule an appointment with my provider if consistent abnormal readings greater than 160/100. take medications every day as prescribed by my healthcare provider and if unable to take them I will discuss with my provider. monitor for symptoms of chest pain, chest tightness/pressure, irregular heartbeat, persistent dizziness, radiating arm pain, and neck or jaw pain. If any of these symptoms are noticed I will seek medical attention immediately by calling 911 exercise/walk 30 minutes 6 day(s) per week. If I experience chest pain, chest tightness, or shortness of breath, I will seek medical attention immediately. follow a diet rich in fruits, vegetables, and low-fat dairy products with reduced content of saturated & total fat. I will reduce my sodium intake daily. An example is the DASH diet. To obtain more information please refer to the DASH Eating Plan listed in Educational Resources. record my blood pressure results. [facility] is safe and secure way for you to do this in your medical record online. try to obtain an ideal body weight. My recent weight was Weight: 244 lb ( 110.678 kg). My weight loss goal for my next office visit is 230 pounds . limit alcohol consumption. For men two drinks per day and women one drink per day. if currently smoking, will discuss how to quit smoking with my healthcare provider and work towards quitting. Educational Resources: National Heart, Lung, & Blood Forsan http://nhlbi.nih.gov/hbp/index.html The DASH Diet Eating Plan http://www.nhlbi.nih.gov/health/health-topics/ topics/dash/ Academy of Nutrition & DIetetics http://eatright.org National Smoking Cessation Site http://smokefree.gov Blood Pressure < Blood Pressure 120/70 (02/17/2019 8:51 No Demarco, Harman Conroy, 140/90 AM EST) Note: This is an individualized treatment (blood pressure) goal for Fady Blancas : Displayed above (on the left) is your goal for blood pressure control. Your most recent blood pressure is also shown above, on the right. You should try to achieve blood pressures that are lower than your goal listed above (on the left). Diabetes < 7.0 Diabetes Uncontrolled type 2 9.4 (02/09/2019 No [place], diabetes mellitus with 8:16 AM EST) Harman Conroy MD microalbuminuria, with long-term current use of insulin Note: Diabetes Care Plan According to current 2014 ADA guidelines the patient A1C goal is less than 7. The patient's last A1C was Lab Results Lab Results Value Date/Time GLYCO 11.8 06/25/2014 0807 GLYCO 10.3 06/10/2013 1049 The patient is:above goal . As your provider, it is important that I advise you regarding: your current medications and help you with any challenges you may face taking your medications as directed (ex. instructions, cost, side effects, and interactions). Important lifestyle changes:exercise, diet and glucose monitoring your clinical goals and how you can achieve success:glucose monitoring and smoking cessation medication management: adjusted medications as appropriate patient education/self-management tools provided: Yes To successfully manage my Diabetes I will: have lab work every six months if my previous A1c was 7 or less. If my results were greater than 7, I will have lab work every three months. My goal is to control my diabetes by keeping A1c below 7.0 take medications every day as prescribed by my healthcare provider and if unable to take them I will discuss with my provider. exercise/walk 30 minutes 7 day(s) per week. If I experience chest pain, chest tightness, or shortness of breath, I will seek medical attention immediately. check feet daily. If sores or irritation are noticed, will seek medical attention. follow a low carbohydrate and low fat diet. My goal is an LDL (bad cholesterol) number less than 100 when I have my routine lab work. check blood sugar as instructed and will call my healthcare provider if the results are consistently below 70 or above 300. I will monitor for symptoms of low blood sugar (feeling faint, dizzy, lig htheaded, jittery, sweaty, or hungry), if symptoms are noticed, I will eat or drink something (glucose tabs, orange juice, candy) to help raise sugar. record my blood sugar results (including dextrose sticks). [facility] is safe and secure way for you to do this in your medical record online. try to obtain an ideal body weight. My recent weight was Weight: 235 lb ( 106.595 kg). My weight loss goal for my next office visit is 215 lb . to prevent kidney problems common to people with diabetes I will complete a yearly Microalbumin to check for protein in urine. I will talk with my healthcare provider about medications to prevent diabetic renal disease. to prevent diabetic retinopathy I will see an eye doctor yearly. A yearly dilated eye exam helps prevent blindness. if currently smoking, will discuss how to quit smoking with my healthcare provider and work towards quitting. Diabetes < 7.0 Diabetes Uncontrolled type 2 9.4 (02/09/2019 No [place], diabetes mellitus with 8:16 AM EST) Harman Conroy MD microalbuminuria, with long-term current use of insulin Note: Diabetes Care Plan According to current 2014 ADA guidelines the patient A1C goal is less than 7. The patient's last A1C was Lab Results Lab Results Value Date/Time GLYCO 11.8 06/25/2014 0807 GLYCO 10.3 06/10/2013 1049 The patient is:above goal . As your provider, it is important that I advise you regarding: your current medications and help you with any challenges you may face taking your medications as directed (ex. instructions, cost, side effects, and interactions). Important lifestyle changes:exercise, diet, glucose monitoring, smoking cessation and medication compliance your clinical goals and how you can achieve success:weight reduction, exercise plan, diet management, glucose monitoring and smoking cessation medication management: adjusted medications as appropriate patient education/self-management tools provided: Yes To successfully manage my Diabetes I will: have lab work every six months if my previous A1c was 7 or less. If my results were greater than 7, I will have lab work every three months. My goal is to control my diabetes by keeping A1c below 7.0 take medications every day as prescribed by my healthcare provider and if unable to take them I will discuss with my provider. exercise/walk 30 minutes 7 day(s) per week. If I experience chest pain, chest tightness, or shortness of breath, I will seek medical attention immediately. check feet daily. If sores or irritation are noticed, will seek medical attention. follow a low carbohydrate and low fat diet. My goal is an LDL (bad cholesterol) number less than 100 when I have my routine lab work. check blood sugar as instructed and will call my healthcare provider if the results are consistently below 70 or above 300. I will monitor for symptoms of low blood sugar (feeling faint, dizzy, lig htheaded, jittery, sweaty, or hungry), if symptoms are noticed, I will eat or drink something (glucose tabs, orange juice, candy) to help raise sugar. record my blood sugar results (including dextrose sticks). [employer] is safe and secure way for you to do this in your medical record online. try to obtain an ideal body weight. My recent weight was Weight: 244 lb ( 110.678 kg). My weight loss goal for my next office visit is 225. to prevent kidney problems common to people with diabetes I will complete a yearly Microalbumin to check for protein in urine. I will talk with my healthcare provider about medications to prevent diabetic renal disease. to prevent diabetic retinopathy I will see an eye doctor yearly. A yearly dilated eye exam helps prevent blindness. if currently smoking, will discuss how to quit smoking with my healthcare provider and work towards quitting. Glycohemoglobin A1c < 7.0 Diabetes 9.4 (02/09/2019 8:16 AM Harman Rodgers EST) MD Note: This is an individualized treatment (diabetes control, HgbA1C) goal for Fady Blancas: Displayed above is your progress towards your HgbA1C goal. Your goal is shown above (on the left); your most recent HgbA1C is shown on the right. Note that lower numbers are better. Weight loss vs. 18 mo Lifestyle 0 (02/17/2019 8:51 AM Harman Rodgers MD max (lbs) >= 10 EST) Note: This is an individualized lifestyle goal for Fady Blancas: Your body mass index (BMI) is more than 30. You should lose weight. A reasonable starting goal is to lose 10 pounds. Displayed above is how many pounds you have lost thus far towards your 10 pound weight loss goal. Keep immunizations current Lifestyle Harman Rodgers MD Note: This is an individualized lifestyle goal for Fady Blancas: Please be sure to keep up-to-date on recommended immunizations. For example, this would include a yearly influenza vaccine. Immunization status can be seen by looking at the Health Maintenance sections of your e[facility], Plan of Care, and any After Visit Summaries. Take all prescribed medications as Self-management Harman Rodgers MD directed Note: This is an individualized self-management goal for Fady Blancas: Please take all prescribed medications as directed. 1. Do not skip doses. If you cannot afford your medications, talk with your doctor. 2. Use a pill reminder system such as a pill box if needed. Your pharmacist can help you with this. 3. Contact your Pharmacy 5 days before your medication runs out. If you cannot take your medications for any reasons, talk with your doctor. 4. Please bring all of your medication bottles and inhalers (or a list of all your medications/inhalers) with you to every visit. Potential barriers to meeting all of your care plan goals will continue to be addressed on an ongoing basis. documented as of this encounter Implants Implanted Type Area Microbiology Lab Technician Device Shelf Model / Identifier Expiration Date Serial / Lot Prolite Mesh Small 3 X 6 - [id number] Ventral [employer] [id number] / Implanted: Qty: 1 on 10/28/2011 at [facility] / [id number] documented as of this encounter Results Not on filedocumented in this encounter Visit Diagnoses Diagnosis Uncontrolled type 2 diabetes mellitus with microalbuminuria, with long-term current use of insulin (HCC) - Primary Family history of coronary artery disease in brother Essential hypertension Unspecified essential hypertension BMI 38.0-38.9,adult Body Mass Index 38.0-38.9, adult Diabetic peripheral neuropathy (HCC) Type II or unspecified type diabetes mellitus with neurological manifestations , not stated as uncontrolled Atypical chest pain Other chest pain Primary osteoarthritis of right hand Primary localized osteoarthrosis, hand documented in this encounter Insurance Payer Benefit Plan / Subscriber ID Effective Dates Phone Address Type Group JOAN ALEGRE xxxxxxxxxxxx 2016-Present [employer] Name Account Type Relation to Date of Phone Billing Address Patient Fady Blancas Personal/Famil 1955 [address] (Home) [place] [phone] [place], [place] (Work) [id number] documented as of this encounter
[2019-04-08 11:03] LABS: ABS Basophils 0.1 10^3/ul (0-0.2); ABS Eosinophils 0.4 10^3/ul (0-0.6); ABS Lymphocytes 1.8 10^3/ul (1.0-4.8); ABS Monocytes 0.8 10^3/ul (0-0.8); ABS Neutrophils 6.4 10^3/ul (1.5-7.7); Eosinophil % 4.6 %; Hematocrit 44 % (42-52); Hemoglobin 15.2 g/dL (14.0-18.0); Lymphocyte % 18.9 %; Mean Corpuscular HGB Conc 35 g/dL (31-36); Mean Corpuscular Hemoglobin 32 pg (27-31); Mean Corpuscular Volume 92 fL (80-94); Nucleated Red Blood Cells % 0.2; Platelet Count 173 10^3/uL (150-450); Red Blood Count 4.73 10^6 /uL (4.18-5.48); Red Cell Distribution Width 14 % (10-15); White Blood Count 9.5 10^3/uL (3.5-10.8)
[2019-04-08] MEDS ORDERED: Aspirin 81 mg CHEW TAB* 81 MG TAB.CHEW PO ONE (11:10)
[2019-04-08 11:19] LABS: ALT 36 U/L (7-52); Albumin/Globulin Ratio 1.4 (1-3); Alkaline Phosphatase 85 U/L (34-104); BUN/Creatinine Ratio 19.4 (8-20); Blood Urea Nitrogen 24 mg/dL (6-24); CO2 Carbon Dioxide 29 mmol/L (22-32); Calcium 9.3 mg/dL (8.6-10.3); Chloride 103 mmol/L (101-111); EGFR African American 71.2 (>60); EGFR Non-African American 58.9 (>60); Globulin 2.9 g/dL (2-4); Glucose 176 mg/dL (70-100); Sodium 139 mmol/L (135-145); Total Protein 6.9 g/dL (6.4-8.9)
[2019-04-08 11:27] LABS: Anion Gap 7 mmol/L (2-11)
[2019-04-08] MEDS ORDERED: Heparin DRIP 25,000 UNITS(*) 25,000 UNITS/500 ML BAG IV SCH ×2 (12:00→12:15)
[2019-04-08] MEDS ORDERED: Metoprolol Tartrate IV* 1 MG/ML 5 ML VIAL IV ONE (12:01)
[2019-04-08] MEDS ORDERED: Metoprolol Tartrate IV* 1 MG/ML 5 ML VIAL IV PRN (12:01)
[2019-04-08] MEDS ORDERED: Perflutren Lipid Microsphere* 3 ML VIAL ONE (12:20)
[2019-04-08] MEDS ORDERED: VERAPAMIL 2.5 MG/ML 2 ML VIAL ** 5 mg/2 ml ONE (12:22)
[2019-04-08] MEDS ORDERED: Lidocaine 1% INJ* 10 MG/ML 30 ML SDV ONE (12:22)
[2019-04-08] MEDS ORDERED: nitroGLYCERIN DRIP* 25,000 MCG/250 ML BTL ONE (12:22)
[2019-04-08] MEDS ORDERED: Heparin 2 UNITS/ML IVPREMIX* 2,000 ML IV ONE (12:22)
[2019-04-08] MEDS ORDERED: Heparin(*) 1000 UNIT/ML 10 ML VIAL CATH LAB IV ONE (12:22)
[2019-04-08] MEDS ORDERED: Iohexol 350 (CONTRAST) 200 ML MDV IV ONE (12:23)
[2019-04-08] MEDS ORDERED: Iodixanol 320 (CONTRAST) 100 ML SDV ONE (12:24)
[2019-04-08] MEDS ORDERED: Heparin VIAL(*) 5000 UNITS/ML VIAL (FIVE THOUSAND) ONE (12:28)
[2019-04-08] MEDS ORDERED: Heparin VIAL(*) 5000 UNITS/ML VIAL (FIVE THOUSAND) IV SCH (13:00)
[2019-04-08] MEDS ORDERED: Midazolam* 1 MG/ML 5 ML VIAL (5 MG) ONE (13:08)
--- NOTE | 2019-04-08 13:44 | ECHO ---
*[facility]* [place] [address] Fax #: [phone] Transthoracic Echocardiogram Patient: Fady Blancas : 1955 Study Date: 04/08/2019 Age: 63 Gender: M HR: 84 bpm Height: 71 in /180.3 cm BSA: 2.43 m^2 Weight: 279.4 lb /127 kg BMI: 39.1 kg/m^2 *Hand Twister: Lolis Cade [facility] *Referring Physician: * Wero Clark MD *Reading Physician: * Wero Clark MD Indications: Abnormal EKG. SOB. History: Dyspnea. Risk factors: Current tobacco use. Hypertension. Diabetes mellitus. Family history is significant for coronary artery disease. Conclusions Summary: - Procedure narrative: Transthoracic echocardiography was performed. Image quality was suboptimal. Intravenous Definity , 3 mlswas administered. - Left ventricle: Systolic function is normal. The estimated ejection fraction is 55-60%. Doppler parameters are consistent with abnormal left ventricular relaxation (grade 1 diastolic dysfunction). - Regional wall motion abnormality: Mild hypokinesis of the basal-mid inferior and basal inferolateral myocardium. - Mitral valve: There is mild regurgitation. - Tricuspid valve: There is trace to mild regurgitation. - Aortic arch: The aortic arch is mildly dilated. - Degree of mitral regurgitation difficult to assess due to suboptimal imaging. Appears to be at least mild. Study data: Transthoracic echocardiogram. Procedure: Transthoracic echocardiography was performed. Image quality was suboptimal. Intravenous Definity , 3 mlswas administered. Complete 2D, spectral Doppler, and color flow Doppler. Location: Emergency department. Patient status: Inpatient. Patient room number: 10. No prior study is available for comparison. Rhythm: Normal sinus rhythm. Findings Left ventricle: The cavity size is normal. Wall thickness is increased. Systolic function is normal. The estimated ejection fraction is 55-60%. Regional wall motion abnormalities: Mild hypokinesis of the basal-mid inferior and basal inferolateral myocardium. Doppler parameters are consistent with abnormal left ventricular relaxation (grade 1 diastolic dysfunction). Right ventricle: Not well visualized. The cavity size is normal. Systolic function is normal. Left atrium: The atrium is normal in size. Right atrium: The atrium is normal in size. Mitral valve: The leaflets are normal thickness. There is no evidence of stenosis. There is mild regurgitation. Aortic valve: The valve is trileaflet. The leaflets are mildly thickened. There is no evidence of stenosis. There is no significant regurgitation. Tricuspid valve: The leaflets are normal thickness. There is no evidence of stenosis. There is trace to mild regurgitation. Pulmonic valve: The leaflets are normal thickness. There is no evidence of stenosis. There is no significant regurgitation. Aorta: Aortic root: The aortic root is appears normal. Ascending aorta: The ascending aorta is poorly visualized. Aortic arch: The aortic arch is mildly dilated. Pericardium: There is no significant pericardial effusion. Pulmonary arteries: Not well visualized. Systemic veins: Inferior vena cava: Not well visualized. Measurements Left ventricle Value Ref Aortic valve Value Ref E', lat mak, TDI (L) 6.7 cm/sec >=10.0 Mak diam, ED 2.4 cm ---- E/e', lat mak, TDI 11 Peak v, S 1.25 m/sec ---- E', med mak, TDI (L) 5.9 cm/sec >=7.0 VTI, S 26.0 cm ---- E/e', med mak, TDI 12 Mean grad, S 4.0 mm Hg ---- E', avg, TDI 6.3 cm/sec Peak grad, S 6.0 mm Hg ---- E/e', avg, TDI 11 <=14 Mitral valve Value Ref LVOT Value Ref Peak E 0.72 m/sec ---- Peak cal, S 0.93 m/sec Peak A 1.01 m/sec ---- Mean grad, S 2 mm Hg Decel time 103 ms ---- Peak grad, D 2.1 mm Hg ---- Right ventricle Value Ref Peak E/A ratio 0.7 ---- EVA, LAX 2.6 cm EVA minor ax, A4C 2.4 cm 1.9 - 3.5 Pulmonic valve Value Ref mid Peak v, S 0.83 m/sec ---- Peak grad, S 3.0 mm Hg ---- Left atrium Value Ref AP dim, ES 3.00 cm 3.00 - Aortic root Value Ref 4.00 Root diam 3.5 cm <4.5 ML dim, A4C 3.5 cm Root max diam, ED 3.5 cm <4.5 SI dim, A4C 4.8 cm Vol/bsa, ES, 1-p A4C 21 ml/m^2 12 - 37 Aortic arch Value Ref Vol/bsa, ES, A/L 24 ml/m^2 16 - 34 Arch diam 3.7 cm ---- Right atrium Value Ref Decending aorta Value Ref SI dim, ES 4.8 cm 3.4 - 5.3 El peak cal 0.75 m/sec ---- ML dim, ES, A4C 3.6 cm 2.6 - 4.4 Estimated RAP 8 mm Hg Legend: (L) and (H) kerri values outside specified reference range. Prepared and electronically signed by Wero Clark MD 04/08/2019 13:43
[2019-04-08] MEDS ORDERED: NS 0.9% 1000 ML** 1,000 ML IV SCH (14:00)
--- NOTE | 2019-04-08 14:00 | CONS ---
CC: Dr. Wero Clark; Dr. Pal CARDIOLOGY CONSULTATION: DATE OF CONSULT: 04/08/19 REASON FOR EVALUATION: Abnormal stress test. HISTORY OF PRESENT ILLNESS: This is a very pleasant 63-year-old gentleman who has multiple risk factors for coronary artery disease including poorly controlled diabetes, hypertension, obesity, tobacco use, and a family history of premature coronary artery disease. He reports that his brother suddenly of IA at age 55 in January. Because of the symptoms, he saw his primary doctor and was considered having a stress test. He noticed over the last 2 to 3 months he has been more dyspneic on exertion. He is usually limited by arthritis in his knees and hips, but he can walk 1000 feet to his barn, but he has noticed that he has to stop for shortness of breath several times when walking. He also has developed swelling in his right leg. He started on a diuretic 2 months ago and has noted some orthostatic lightheadedness. He has had no syncope or near syncope. No orthopnea and no chest pain. Today, he was seen by Dr. Merchant for a dobutamine echo. I had received a call from Dr. Merchant, who reported that during his infusion he developed inferior ST elevations and hypotension with a decrease in his blood pressure from 154/90 to 112. The dobutamine was discontinued. The inferior ST elevations developed at a relatively low heart rate of 98. At 110, he had [address] elevation. He had some mild dizziness. His ST depressions persisted afterwards and he developed significant ST depressions of 2 mm in I, aVL, anterior and in V2, raising the possibility of inferoposterior infarct. His inferior ST elevations and lateral ST depressions have somewhat recovered but persisted. He was pain-free throughout this and he was sent to the emergency room. In the emergency room, his EKG revealed resolution of the inferior ST elevations, but he had persistent [address] depressions. He denies any syncope, near syncope, shortness of breath, or chest pain currently. PAST MEDICAL HISTORY: 1. Hypertension in the past. 2. Diabetes for 35 years, poorly controlled for many years, recently brought under control by Dr. Mayfield. 3. 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 4. Tobacco use of 4 to 5 cigarettes a day. 5. Obesity, up to 332 for many years. When his diabetes was under worst control, he dropped his weight to 218. He is back up to 280 recently. 6. He has had hyperlipidemia. 7. He has chronic sinusitis and a cough. PAST SURGICAL HISTORY: Includes umbilical hernia repair. MEDICATIONS: His medications as an outpatient include: 1. Torsemide 40 mg daily. 2. Prevacid 30 mg a day. 3. Insulin regular 500 units/mL, 100 units subcu t.i.d. 4. Fluticasone nasal spray 2 sprays to nares bilaterally. 5. Farxiga 5 mg daily. 6. Clotrimazole janell 10 mg 5 times a day. 7. Atorvastatin 20 mg a day. As an inpatient, he has received an aspirin and is about to get IV heparin and IV metoprolol. FAMILY HISTORY: Includes father at 77 of CAD, mother at 75 of CAD, and a brother who at 55 of an IA. 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 He is and accompanied by his . REVIEW OF SYSTEMS: Review of systems x10 was negative except as above. PHYSICAL EXAM: He is a well-developed, morbidly obese gentleman, in no apparent distress. Stated weight was 280 pounds. Pulse of 87, blood pressure 135/79. No significant JVD. Carotids 2+ without bruits. No cervical adenopathy. No thyromegaly. Extraocular muscles intact. Eyes are somewhat protuberant. Cardiac Exam: S1, S2, somewhat distant. No murmurs, gallops, or rubs. Chest was clear. No CVAT. Abdomen: Obese. Bowel sounds present. Nontender. Femoral pulses intact without bruits. Distal pulses somewhat diminished on the right, 2+ on the left. Negative edema. Motor strength 5/5 bilaterally. Deep tendon reflexes absent in the lower extremities, 2/4 in the upper extremities. A and O x 3. DIAGNOSTIC STUDIES/LAB DATA: EKG: As was stated above. Labs include fairly unremarkable CBC with hematocrit of 44, hemoglobin of 15. Initial troponin was 0.1, BNP of 47. Sodium 139, chloride of 103, BUN of 24, creatinine of 1.24. Chest x-ray: No active cardiopulmonary disease. IMPRESSION AND PLAN: My impression is that Mr. Blancas has multiple risk factors for coronary artery disease and abnormal stress today with dobutamine echo and elevated troponin. He also has a history of progressive dyspnea on exertion over the last 2 months raising the possibility of significant coronary artery disease. I discussed the case with him, his , and Dr. Lundberg and the plan is as follows: 1. He will be treated for acute coronary syndrome with IV heparin, metoprolol, and aspirin. 2. We will hold off on antiplatelet therapy anticipating possible cath in light of the potential for multivessel coronary artery disease. 3. He was strongly advised to discontinue tobacco use. 4. We will continue atorvastatin. 5. We will check his electrolytes and follow serial EKGs and troponins. Further recommendations will depend on his clinical course. [id number]/[facility] #: [id number] addendum: Patient seen by Dr. 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 He will be transferred to Dr. Garcia at [facility] for further treatment with CABG. Dr. Gonzalezitc informed. DEIRDRE
--- NOTE | 2019-04-08 14:30 | ADMNOTE ---
Subjective Date of Service: 04/08/19 Interval History: This is the H&P and Transfer Summary for Mr. Blancas, a 63 year old male patient with history of HTN, DMII, poorly controlled, 6th nerve plasy, tobacco abuse, obesity, HLP that presented to Dr. Merchant for dobutamine stress test today. During the test, he developed ST segment elevations and hypotension with dizziness. He was brought to [facility] for evaluation. He was noted to have ST depressions in his inferior, posterior and lateral leads. Patient was brought urgently to the [facility] by Dr. Lundberg where he is found to have multi vessel disease that will require urgent surgical intervention. . Family History: Unchanged from Admission - father age 77 of CAD, mother age 75 of CAD and brother age 55 recently of SC Social History: Unchanged from Admission - tobacco abuse, no drug or ETOH abuse Past Medical History: Unchanged from Admission - as above Review of Systems - Measurements Intake and Output: Intake and Output Last 24 Hours 04/06/19 04/07/19 04/08/19 04/09/19 06:59 06:59 06:59 06:59 Weight 280 lb - Review of Systems Constitutional Symptoms: Negative: Weight Gain, Weight Loss, Weakness, Fatigue, Fever, Night Sweats, Unexplained Falls, Other Dermatology: Negative: Normal, Rash, Skin Lesions, Cancer, Skin Lumps, Other HEENT: Negative: Normal, Change in Hearing, Vertigo, Dental Problems, Tinnitus, Sinus Problem, Other Eyes: Negative: Normal, Change in Vision, Double Vision, Eye Pain, Glaucoma, Cataract, Contacts or Glasses, Other Thyroid: Negative: Normal, Goiter, Thyroid Nodule, Cold Intolerance, Heat Intolerance , Sweatiness, Tremor, Frequent Defecation, Constipation, Palpitations, Primary Hypothyroidism, Primary Hyperthyroidism, Weight Loss, Weight Gain, Change in Skin/Hair, Change in Menstruation, Radiation Exposure, Other Pulmonary: Positive: Shortness of Breath Cardiology: Positive: Shortness of Breath Gastroenterology: Negative: Normal, Abdominal Pain, Nausea, Vomiting, Anorexia, Indigestion, Difficulty Swallowing, Heartburn, Constipation, Diarrhea, Blood in Stools, Change in Bowel Habits, Haematemesis, Melena, Other Genital - Urinary: Negative: Normal, Dysuria, Hematuria, Polyuria, Nocturia, Other Endocrinology: Positive: Obesity, Diabetes Mellitus Neurology: Negative: Normal, Headache, Migraines, Change in Vision, Diplopia, Dizziness , Change in Balancing, Change in Coordination, Change in Memory, Change in Speech, Change in Sphincter Function, Change in Walking, Numbness\Paresthesiae, Unexplained Weakness, Hx of Stroke\TIA, Hx of Seizures, Other Psychiatry: Negative: Normal, Depression, Anxiety, Depressed Mood, Anhedonia, Sexual Dysfunction, Weight Change, Guilt Feelings, Tearfulness, Unusual Fatigue, Unusual Anxiety, Suicidal Ideation, Hypomania, Eating Disorders, Other Objective Active Medications: Heparin Sodium (Porcine) (Heparin Vial(*)) 5,000 units IV .PER PROTOCOL [facility] Last Admin: 04/08/19 12:29 Dose: 5,000 units Sodium Chloride (Ns 0.9% 1000 Ml) 1,000 mls @ 150 mls/hr IV ED ONCE ONE Stop: 04/08/19 17:15 Last Admin: 04/08/19 11:25 Dose: 150 mls/hr Heparin Sodium/Dextrose (Heparin Drip 25,000 Units(*)) 25,000 units in 500 mls @ 0 mls/hr IV .PER RATE [facility]; Protocol Last Admin: 04/08/19 12:34 Dose: 1,000 mls/hr Sodium Chloride (Ns 0.9% 1000 Ml) 1,000 mls @ 100 mls/hr IV .per rate [facility] Stop: 04/08/19 18:59 Metoprolol Tartrate (Lopressor Iv*) 5 mg IV Q6H PRN PRN Reason: BLOOD PRESSURE Vital Signs - 8 hr 04/08/19 04/08/19 04/08/19 10:29 12:05 12:55 Temperature 95.7 F 96 F 96 F Pulse Rate 83 83 83 Respiratory 16 12 12 Rate Blood Pressure 176/113 147/87 147/87 (mmHg) O2 Sat by Pulse 96 98 98 Oximetry Oxygen Devices in Use Now: None Appearance: alert, NAD Eyes: No Scleral Icterus, PERRLA Ears/Nose/Mouth/Throat: NL Teeth, Lips, Gums, Mucous Membranes Moist Neck: Trachea Midline Respiratory: Symmetrical Chest Expansion and Respiratory Effort, Clear to Auscultation Cardiovascular: NL Sounds; No Murmurs; No JVD, RRR, No Edema Abdominal: NL Sounds; No Tenderness; No Distention, No Hepatosplenomegaly Extremities: No Edema, No Clubbing, Cyanosis Skin: No Rash or Ulcers Neurological: Alert and Oriented x 3, NL Sensation, NL Muscle Strength and Tone Lines/Tubes/Other Access: Clean, Dry and Intact Other Access - right radial cath site with compression device, no hematoma or bleeding Nutrition: - - NPO Result Diagrams: 04/08/19 10:49 04/08/19 10:50 Diagnostic Imaging: Patient Name: ROXANN BLANCAS JR Medical Record#: [id number] Ordering Physician: Warren Moscoso DO Acct.#: [id number] : 1955 Age: 63 Sex: M Location: EMERGENCY DEPARTMENT Exam Date: 04/08/19 1034 ADM Status: REG ER Order Information: CHEST AP/PORT Accession Number: [id number] CPT: 89466 HISTORY: ischemic changes during today's stress test COMPARISONS: None relevant available at the time of dictation. VIEWS: 2: frontal AP view of the chest at 10:52 AM FINDINGS: LINES AND TUBES: None. CARDIOMEDIASTINAL SILHOUETTE: The cardiomediastinal silhouette is normal for portable technique. PLEURA: The costophrenic angles are sharp. No pleural abnormalities are noted. LUNG PARENCHYMA: The lungs are clear. ABDOMEN: The upper abdomen is clear. There is no subphrenic gas. BONES AND SOFT TISSUES: No bone or soft tissue abnormalities are noted. IMPRESSION: NO ACTIVE CARDIOPULMONARY DISEASE. EKG Data: RSR with depression in lateral leads, rate 80s Assess/Plan/Problems-Billing Assessment: This is a 63 year old male with hx of HTN, HLP, obesity and uncontrolled DM that presented to [facility] with positive stress test, found to have multi vessle CAD/ ACS: - Patient Problems (1) Acute coronary syndrome Code(s): I24.9 - ACUTE ISCHEMIC HEART DISEASE, UNSPECIFIED SNOMED Code(s): 236181624 Comment: - s/p diagnostic cath today - Continue heparin gtt, asa, statin and metoprolol - Remain NPO - Trend trops, currently 0.10 - Transfer to [facility] for surgical evalutation and intervention emergently today (2) DMII (diabetes mellitus, type 2) Comment: - Continue insulin and farxiga - Accuchecks Q6h (3) HTN (hypertension) Code(s): I10 - ESSENTIAL (PRIMARY) HYPERTENSION SNOMED Code(s): 60289076 Comment: - BP stable on BB (4) Obesity (BMI 30-39.9) Code(s): E66.9 - OBESITY, UNSPECIFIED SNOMED Code(s): 523905407 Comment: - Counseled on weight loss (5) Tobacco abuse Code(s): Z72.0 - TOBACCO USE SNOMED Code(s): 225869412 Comment: - Counseled on cessation Status and Disposition: As per Dr. Lundberg, patient will be emergently transported to [facility] for surgical evaluation. Accepting surgeon is Dr. Emanuel Garcia. Patient will be traveling by ALS. He is in stable condition. All questions were answered and patient is agreeable to transport. Coordinated with cardiology and ICU staff. Critical Care Time Spent: 45 minutes
[2019-04-08 14:55] VITALS: BP 158/73
--- NOTE | 2019-04-08 16:06 | CATH ---
CC: Dr. Harman Pal, [facility], [facility] * CC: Dr. Negrito Merchant, [employer], [facility], [facility] * CC: Dr. Emanuel Garcia, Department of Cardiovascular Surgery, [place], [place] * CARDIAC CATHETERIZATION REPORT: DATE OF PROCEDURE: 04/08/19 - ROOM #ICU-09 INDICATION FOR THE PROCEDURE: Asked by Dr. Wero Clark to perform coronary arteriography in light of patient presenting [facility] from Dr. Merchant's office after a dramatically abnormal dobutamine stress echo examination, during which ST segment elevation was documented in the inferior leads with profound ST segment depression diffusely noted with the presence of transient hypotension. The patient of note has been having increasing shortness of breath over the past several months and had a brother who recently in the brother's primary care office from coronary artery disease. Assess for the presence and severity of coronary artery disease, possible intervention. PROCEDURE: Coronary arteriography CONSENT: The patient was interviewed and examined in the emergency room where the risk and benefits were explained. He understood them and wished to proceed. APPROACH UTILIZED: The right radial artery size was assessed under ultrasound and found to be acceptable for an approach. PRECARDIAC CATHETERIZATION LABORATORY RESULTS: hemoglobin and hematocrit of 15.2 and 44 with a platelet count of 173,000. Glucose 176, BUN and creatinine of 24 and 1.24. Sodium 139, chloride 103, bicarb 29, troponin 0.1. EQUIPMENT UTILIZED: 1. Right radial artery sheath. A 6-Yemeni Glidesheath Slender. 2. Diagnostic catheter utilized was a 5-Yemeni TIG-4 curved catheter. 3. The diagnostic guidewire utilized was a 260 length Charles curved guidewire. 4. The closure device utilized was a long Vasc Band by [employer]. MEDICATIONS GIVEN: During the cardiac catheterization included radial artery cocktail with 300 mcg of nitroglycerin and 3 mg of verapamil. Of note, the patient had received 5000 units of heparin intravenously in the emergency room and was placed on a heparin drip. The patient also received 1% lidocaine locally. 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 DESCRIPTION OF PROCEDURE: The patient was brought to the cardiovascular laboratory where a formal timeout was performed. He was prepped and draped in sterile fashion, and under ultrasound guidance, the right radial artery was cannulated and sheath was placed. Coronary arteriography was then performed. Following this, the catheter and sheath were removed and hemostasis was obtained with the Vasc Band. The total contrast utilized was with 70 cc of Visipaque dye. The radiation exposure included 5.7 minutes of fluoro time. The air kerma radiation was 1279 milligray. The DAP radiation was 7627 microgray per meter squared. At the end of the case, the sheath was removed and hemostasis was obtained with the Vasc Band as mentioned above. The reverse Barbeau was a B. RESULTS: CORONARY ARTERIOGRAPHY: A. Right coronary artery - a dominant vessel supplying multiple acute marginal branches as well as the PDA and a posterior left ventricular branch. The proximal segment of the right coronary artery had diffuse disease with 55% to 60% narrowing leading to the proximal to mid segment, which was more normal in appearance. Just past that was a critical 85% lesion followed by another 80 % lesion as it turned onto the inferior surface of the heart. Prior to the PDA was another hazy 80% lesion. The proximal portion of the posterior descending artery had a significant 80% blockage. The midportion of the posterior descending artery appeared to be bypassable. The continuation of the right coronary artery had a critical area of 85% to 90% stenosis before the posterior left ventricular branch, which appeared to be bypassable as well. B. Left coronary artery: 1. The left main - there was mild tapering of the distal left main with a 10% narrowing. 2. Left anterior descending artery. The left anterior descending artery was noted to have diffuse disease in its proximal segment with calcium with a narrowing of approximately 70%. The midportion had 55% to 60% narrowing. The artery then became more normal in caliber in its mid to distal area, but past at this point it again narrowed and had diffuse disease with up to 80% obstruction before a more normal caliber area right at the apical region. The diagonal branches of the LAD appeared to be small in caliber. 3. Circumflex artery - a nondominant vessel supplying a high bifurcating first obtuse marginal branch that had a 75% proximal area with an 85% mid lesion before the bifurcation. After the bifurcation, the medial branch had a significant 80% obstruction noted. The caliber of both the medial branch and the lateral branch in its mid to distal areas appeared to be bypassable. The continuation of the circumflex supplied a critically stenosed proximal area of a trifurcating obtuse marginal branch with a long segment of 85% to 90% stenosis. The distal vessel with its trifurcation appeared to be bypassable in nature. OVERALL ASSESSMENT: Significant critical multivessel disease as described above. Bypass surgery with bypasses to the right coronary artery posterior descending artery and right coronary artery posterior left ventricular branch, in addition to the medial and lateral branches of the first obtuse marginal branch, and the second obtuse marginal branch, as well as the LAD should be performed if at all possible. This would produce complete revascularization. Further management of the case will be through Dr. Emanuel Garcia, who is reviewing the films that were emailed to her, and she had received them and has graciously accepted the patient in transfer to [facility]. [id number] #: [id number] MTDDominic
== END 2019-04-08 14:55 | disposition short-term general hospital (02) | DRG 191 ==
LOC: ED 10:22 → ICU 13:52
PROVIDERS: ADMIT Internal Medicine Critical Care Medicine; ATTEND Internal Medicine Critical Care Medicine
PROC: B2111ZZ Fluoroscopy of Multiple Coronary Arteries using Low Osmolar Contrast (ICD-10-PCS; principal; 2019-04-08 12:30)
DX: I25.10 Atherosclerotic heart disease of native coronary artery without angina pectoris (principal); I24.9 Acute ischemic heart disease, unspecified; E66.01 Morbid (severe) obesity due to excess calories; I10 Essential (primary) hypertension; F17.200 Nicotine dependence, unspecified, uncomplicated; E78.5 Hyperlipidemia, unspecified; J32.9 Chronic sinusitis, unspecified; M17.0 Bilateral primary osteoarthritis of knee; M16.0 Bilateral primary osteoarthritis of hip; E11.9 Type 2 diabetes mellitus without complications; R79.89 Other specified abnormal findings of blood chemistry; Z68.38 Body mass index [BMI] 38.0-38.9, adult; Z79.4 Long term (current) use of insulin
CPT/HCPCS: 36415; 71045; 80053; 83880; 84484; 85025; 85730; 87641; 93005; 93306; 93454; 99156; 99283; A9270-GY; C8929; J1644; J2250

== ENCOUNTER 2024-04-26 01:30 | Observation (INO) ==
[2024-04-26 02:20] LABS: Hematocrit 42.6 % (38-53); Hemoglobin 14.4 g/dL (13.2-16.3); Mean Corpuscular Hemoglobin 30.6 pg (27-33); Mean Corpuscular Hgb Conc 33.8 g/dL (31-36); Mean Corpuscular Volume 90.6 fL (80-97); Mean Platelet Volume 9.3 fL (7.5-11.2); Platelet Count 219 10^3/uL (150-450); Red Cell Distribution Width 15.3 % (12-17); White Blood Count 14.7 10^3/uL (3.6-10.2)
[2024-04-26 02:37] LABS: INR 1.09 (0.85-1.14)
[2024-04-26] MEDS: Acetaminophen IV 1 GM/100ML 1,000 MG/100 ML BAG IV ONE (02:42)
[2024-04-26] MEDS: Lactated Ringers 1000 ml BAG 1,000 ML IV ONE (02:43)
[2024-04-26 02:52] LABS: Albumin 3.9 g/dL (3.5-5.7); Albumin/Globulin Ratio 1.3 (1-3); C Reactive Protein 119.67 mg/L (<8.01); Calcium 9.3 mg/dL (8.6-10.3); Creatinine, Serum 1.5 mg/dL (0.67-1.17); Potassium 4.5 mmol/L (3.5-5.0); Total Bilirubin 0.6 mg/dL (0.2-1.0); Total Protein 6.9 g/dL (6.4-8.9); eGFR CKD-EPI 50.4 (>60)
[2024-04-26 03:15] LABS: ABS Basophils 0.1 10^3/uL (0.0-0.1); ABS Eosinophils 0.3 10^3/uL (0.0-0.5); ABS Lymphocytes 1.2 10^3/uL (1.0-4.8); ABS Monocytes 1.6 10^3/uL (0.0-1.1); ABS Neutrophils 11.5 10^3/uL (1.5-7.6); ABS Nucleated RBC 0.03 10^3/ul; Eosinophil % 2.1 %; Nucleated Red Blood Cells % 0.2 %/100WBC (0.0-0.8)
[2024-04-26 03:44] LABS: Urine Appearance Clear; Urine Bacteria Absent /HPF (Absent); Urine Bilirubin Negative (Negative); Urine Blood Trace (Negative); Urine Color Light-Yellow; Urine Glucose 4+ (>=1000 mg/dL) (Negative); Urine Ketones Negative (Negative); Urine Nitrite Negative (Negative); Urine Protein Negative (Negative); Urine Red Blood Cell Trace(0-2/hpf) /HPF (0-Trace); Urine Urobilinogen Negative (Negative); Urine White Blood Cell Absent /HPF (0-Trace)
[2024-04-26] MEDS: Ondansetron 4 mg VIAL 2 MG/ML 2 ml VIAL IV ONE ×2 (03:50→06:31)
[2024-04-26] MEDS: Morphine 4 MG/ML VIAL (1 ml) IV ONE ×2 (03:51→06:11)
[2024-04-26] MEDS: Iodixanol 320 (CONTRAST) 100 ML SDV IV ONE (05:09)
[2024-04-26] MEDS: Piperacillin/Tazobac 3.375 BAG 3.375 GM/100 ML BAG IV ONE (06:11)
[2024-04-26] MEDS ORDERED: Ondansetron 4 mg VIAL 2 MG/ML 2 ml VIAL ONE ×2 (06:26→10:22)
[2024-04-26] MEDS ORDERED: HYDROmorphone 1 MG/1 ML SYRINGE IV SLOW PU PRN (08:42)
[2024-04-26] MEDS ORDERED: Ondansetron 4 mg VIAL 2 MG/ML 2 ml VIAL IV PRN (08:42)
[2024-04-26] MEDS ORDERED: Dextrose 50% Syringe 50 ml 25 GM/50 ML SYRINGE IV PUSH PRN (08:56)
[2024-04-26] MEDS: NS 0.9% 1000 ml BAG 1,000 ML IV SCH (09:50)
[2024-04-26] MEDS ORDERED: Midazolam 2 mg/2 ml VIAL 1 mg/ml 2 ml VIAL (2 mg) ONE (10:22)
[2024-04-26] MEDS ORDERED: Rocuronium 50 mg VIAL 10 mg/ml 5 ml VIAL (50 mg) ONE (10:22)
[2024-04-26] MEDS ORDERED: Dexamethasone IV 4 MG/ML VIAL 1 ml VIAL ONE ×2 (10:22→11:48)
[2024-04-26] MEDS ORDERED: fentaNYL 250 mcg/5 ml 50 MCG/ML 5 ml VIAL (250 MCG) ONE (10:22)
[2024-04-26] MEDS ORDERED: Lidocaine 2% PF 5 ML VIAL ONE (10:22)
[2024-04-26] MEDS ORDERED: Propofol 10 MG/ML 20 ML BTL ONE (10:22)
[2024-04-26] MEDS ORDERED: Bupivacaine 0.25% w/EPI 10 ML SDV ONE (11:02)
[2024-04-26] MEDS ORDERED: Piperacillin/Tazobac 3.375 BAG 3.375 GM/100 ML BAG IV ONE (15:17)
[2024-04-26] MEDS: Piperacillin/Tazobac 3.375 BAG 3.375 GM/100 ML BAG IV SCH ×2 (15:26→23:03)
[2024-04-26] MEDS: prednisoLONE 1% OPHTH.SUSP 5 ML OPHTH.SUSP RIGHT EYE SCH (17:40)
[2024-04-26] MEDS: Acetaminophen IV 1 GM/100ML 1,000 MG/100 ML BAG IV SCH (17:40)
[2024-04-26] MEDS: Heparin 5000 UNITS/ML 1 mL VIAL SUBCUT SCH (17:41)
[2024-04-26] MEDS ORDERED: Calcium Carb (TUMS) 500 mg CHEW TAB PO PRN (19:51)
[2024-04-26] MEDS: prednisoLONE 1% OPHTH.SUSP 5 ML OPHTH.SUSP LEFT EYE SCH (21:03)
[2024-04-27 07:46] LABS: Hematocrit 38.1 % (38-53); Hemoglobin 12.6 g/dL (13.2-16.3); Mean Corpuscular Hemoglobin 30.5 pg (27-33); Mean Corpuscular Hgb Conc 33.1 g/dL (31-36); Mean Corpuscular Volume 92.2 fL (80-97); Mean Platelet Volume 9.6 fL (7.5-11.2); Platelet Count 198 10^3/uL (150-450); Red Blood Count 4.14 10^6/uL (4.06-5.63); Red Cell Distribution Width 15.4 % (12-17); White Blood Count 16.3 10^3/uL (3.6-10.2)
[2024-04-27 08:13] LABS: Albumin 3.2 g/dL (3.5-5.7); Albumin/Globulin Ratio 1.2 (1-3); Calcium 7.8 mg/dL (8.6-10.3); Creatinine, Serum 1.67 mg/dL (0.67-1.17); Globulin 2.6 g/dL (2-4); Potassium 4.7 mmol/L (3.5-5.0); Total Bilirubin 1.6 mg/dL (0.2-1.0); Total Protein 5.8 g/dL (6.4-8.9); eGFR CKD-EPI 44.3 (>60)
[2024-04-27] MEDS: NS 0.9% 500 ml BAG 500 ML IV ONE (09:13)
[2024-04-27 09:20] LABS: ABS Lymphocytes 0.7 10^3/uL (1.0-4.8); ABS Monocytes 1.1 10^3/uL (0.0-1.1); ABS Neutrophils 14.4 10^3/uL (1.5-7.6); ABS Nucleated RBC 0.01 10^3/ul; Lymphocyte % 4.3 %
[2024-04-27 09:21] LABS: RBC Morphology Normal (Normal)
[2024-04-27] MEDS: Aspirin EC 81 mg TAB.EC (enteric coated) PO SCH (10:37)
[2024-04-27] MEDS: BROMFENAC 0.09% BOTH EYES SCH (12:40)
[2024-04-27] MEDS: Insulin GLARGINE 100 un/ml 10 ml VIAL SUBCUT ONE (17:46)
[2024-04-28 06:40] LABS: ABS Eosinophils 0.2 10^3/uL (0.0-0.5); ABS Lymphocytes 1.2 10^3/uL (1.0-4.8); ABS Monocytes 0.8 10^3/uL (0.0-1.1); Hematocrit 37.7 % (38-53); Hemoglobin 12.8 g/dL (13.2-16.3); Lymphocyte % 6.5 %; Mean Corpuscular Hemoglobin 30.9 pg (27-33); Mean Corpuscular Volume 90.7 fL (80-97); Mean Platelet Volume 9.7 fL (7.5-11.2); Platelet Count 245 10^3/uL (150-450); Red Blood Count 4.15 10^6/uL (4.06-5.63); Red Cell Distribution Width 15.4 % (12-17); White Blood Count 18.2 10^3/uL (3.6-10.2)
[2024-04-28 08:52] LABS: Calcium 8.4 mg/dL (8.6-10.3); Creatinine, Serum 1.36 mg/dL (0.67-1.17); eGFR CKD-EPI 56.7 (>60)
[2024-04-28 11:23] VITALS: BP 134/72
== END 2024-04-28 12:00 | disposition home or self-care (01) ==
LOC: ED 01:30 → EDHOLD 01:30 → AA 10:11 → SSU 16:45
PROVIDERS: ADMIT Surgery; ATTEND Surgery